=== PATIENT | female | born 1970 | race African-American/Black ===

== ENCOUNTER 2017-02-05 15:06 | Emergency (ER) | payer SELFPAY ==
[~2017-02-05] VITALS: Ht 160 cm; Wt 73.0 kg
[2017-02-05 15:26] VITALS: BP 169/114
[2017-02-06] MEDS ORDERED: HYDR12.54 PO (15:07)
== END 2017-02-05 21:00 | disposition left against medical advice (07) ==
LOC: ER 15:26
DX: Z53.21 Procedure and treatment not carried out due to patient leaving prior to being seen by health care provider (principal)

== ENCOUNTER 2017-02-06 14:53 | Emergency (ER) | payer SELFPAY ==
[~2017-02-06] VITALS: Ht 160 cm; Wt 74.0 kg
[2017-02-06] MEDS ORDERED: HYDR12.54 PO (15:07)
[2017-02-06 15:22] VITALS: BP 154/90
== END 2017-02-06 16:28 | disposition home or self-care (01) ==
LOC: ER 16:19
DX: M54.5 Low back pain (principal); M54.2 Cervicalgia; I10 Essential (primary) hypertension; Z88.8 Allergy status to other drugs, medicaments and biological substances; Z98.890 Other specified postprocedural states; V43.52XA Car driver injured in collision with other type car in traffic accident, initial encounter; Y93.89 Activity, other specified; Y92.488 Other paved roadways as the place of occurrence of the external cause
CPT/HCPCS: 99282

== ENCOUNTER 2022-02-24 22:37 | Inpatient (IN) | payer MEDICAID ==
[~2022-02-24] VITALS: Ht 160 cm; Wt 88.0 kg
[~2022-02-24 22:37] MED LIST: AMLO5TAB88 MT; ASPI-1497 PO; ATOR-2 PO; ISOS60TA76 PO; METO-385 PO; METO100T16 PO
[2022-02-24] MEDS ORDERED: NICARDIPINE 100 MG in SODIUM CHLORIDE 0.9% 60 ML IV ONE (23:00)
[2022-02-24 23:14] LABS: BASOPHILS % 0.8 % (0.0-2.0); EOSINOPHILS % 2.5 % (0.0-5.0); HEMATOCRIT. 39.2 % (36.0-48.0); HEMOGLOBIN. 12.5 g/dL (12.0-16.0); LYMPHOCYTES % 18.4 % (20.0-50.0); MEAN CORPUSCULAR HEMOGLOBIN 24.7 pg (28.0-32.0); MEAN CORPUSCULAR VOLUME 77.5 fL (81.0-99.0); MEAN PLATELET VOLUME 8.3 fl (7.4-10.4); MONOCYTES % 7.8 % (2.0-8.0); NEUTROPHILS % 70.5 % (40.0-76.0); PLATELET 285 x1000/uL (130-400); RED BLOOD CELL COUNT 5.05 mill/uL (4.2-5.4)
[2022-02-24 23:20] LABS: CHLORIDE 114 mEq/L (98-107)
[2022-02-24] MEDS: NICARDIPINE 100 MG in SODIUM CHLORIDE 0.9% 60 ML IV PRN (23:35)
[2022-02-25] VITALS (72 sets, daily range): BP systolic 105–144; BP diastolic 62–92
[2022-02-25] MEDS ORDERED: ONDANSETRON HCL 4MG/2ML INJ IV NR (00:15)
[2022-02-25] MEDS ORDERED: DEXAMETHASONE 10 MG/ML VIAL IV NR (00:15)
[2022-02-25] MEDS ORDERED: LEVETIRACETAM 1000MG PREMIX 100 ML IV NR (00:15)
[2022-02-25] MEDS ORDERED: MORPHINE SULFATE 4 MG/ML CPJ (NOT FOR IM USE) IV ONE (01:15)
[2022-02-25] MEDS ORDERED: MORPHINE SULFATE 2 MG/ML CPJ (NOT FOR IM USE) IV PRN (05:00)
[2022-02-25] MEDS ORDERED: DEXT 5%/LACTATED RINGERS 1,000 ML IV SCH (05:00)
[2022-02-25] MEDS ORDERED: NALOXONE HCL 0.4MG/ML VIAL IV PRN (05:15)
[2022-02-25] MEDS: DEXAMETHASONE 4MG/ML 1ML VIAL IV SCH ×4 (05:44→23:14)
[2022-02-25] MEDS: NICARDIPINE 100 MG in SODIUM CHLORIDE 0.9% 60 ML IV PRN ×3 (05:54→22:34)
[2022-02-25] MEDS: LEVETIRACETAM 500MG PREMIX 100 ML IV SCH ×2 (08:59→20:35)
[2022-02-25 11:00] LABS: CLARITY URINE CLEAR (CLEAR); COLOR URINE YELLOW (YELLOW); KETONES URINE NEGATIVE (NEGATIVE); LEUKOCYTE ESTERASE URINE NEGATIVE (NEGATIVE); NITRITE URINE NEGATIVE (NEGATIVE); OCCULT BLOOD URINE 2+ (NEGATIVE); PH URINE 5.5 (4.5-8.0); PROTEIN URINE 4+ (NEGATIVE); SPECIFIC GRAVITY URINE 1.018 (1.005-1.030); UROBILINOGEN URINE 0.2 E.U./dL (0.2-1.0)
[2022-02-25 11:23] LABS: HEMOGLOBIN. 12.4 g/dL (12.0-16.0); MEAN CORPUSCULAR HEMOGLOBIN 24.9 pg (28.0-32.0); MEAN CORPUSCULAR VOLUME 78.2 fL (81.0-99.0); MEAN PLATELET VOLUME 8.5 fl (7.4-10.4); PLATELET 302 x1000/uL (130-400); RED BLOOD CELL COUNT 4.99 mill/uL (4.2-5.4); RED CELL DISTRIBUTION WIDTH 17.3 % (11.6-14.6)
[2022-02-25 11:34] LABS: PARTIAL THROMBOPLASTIN TIME 30.5 sec (23.4-31.0); PROTHROMBIN TIME 10.7 sec (9.6-11.0)
[2022-02-25 11:46] LABS: *AMPHETAMINES SCREEN URINE NEGATIVE (NEGATIVE); *BARBITURATES SCREEN URINE NEGATIVE (NEGATIVE); *BENZODIAZEPINES SCREEN URINE NEGATIVE (NEGATIVE); *COCAINE SCREEN URINE NEGATIVE (NEGATIVE); CANNABINOID URINE SCREEN NEGATIVE (NEGATIVE); METHADONE URINE SCREEN NEGATIVE (NEGATIVE); OPIATES URINE SCREEN PRESUMTIVE POSITIVE (NEGATIVE); PHENCYCLIDINE URINE SCREEN NEGATIVE (NEGATIVE)
[2022-02-25] MEDS ORDERED: DEXT 5%/0.9% NACL 1,000 ML IV SCH (12:30)
[2022-02-25 12:33] LABS: PLATELET ESTIMATE NORMAL
[2022-02-26] VITALS (88 sets, daily range): BP systolic 98–150; BP diastolic 61–105
[2022-02-26 05:07] LABS: HEMATOCRIT. 39.7 % (36.0-48.0); HEMOGLOBIN. 12.2 g/dL (12.0-16.0); MEAN CORPUSCULAR HEMOGLOBIN 24.3 pg (28.0-32.0); MEAN CORPUSCULAR VOLUME 78.9 fL (81.0-99.0); MEAN PLATELET VOLUME 8.3 fl (7.4-10.4); PLATELET 314 x1000/uL (130-400); RED BLOOD CELL COUNT 5.03 mill/uL (4.2-5.4)
[2022-02-26] MEDS: DEXAMETHASONE 4MG/ML 1ML VIAL IV SCH ×4 (05:15→23:56)
[2022-02-26 05:24] LABS: PHOSPHORUS 5.5 mg/dL (2.5-4.9)
[2022-02-26 07:18] LABS: PLATELET ESTIMATE NORMAL
[2022-02-26] MEDS: LEVETIRACETAM 500MG PREMIX 100 ML IV SCH ×2 (08:58→20:16)
[2022-02-26] MEDS ORDERED: AMLODIPINE 5MG TABLET PO NR (09:15)
[2022-02-26 10:24] LABS: HEPATITIS B SURFACE AB < 3.1 mIU/mL
[2022-02-26] MEDS: MORPHINE SULFATE 2 MG/ML CPJ (NOT FOR IM USE) IV PRN ×2 (10:29→18:51)
[2022-02-26] MEDS ORDERED: ACETAMINOPHEN 325MG TABLET PO PRN (10:30)
[2022-02-26 10:34] LABS: HEPATITIS B SURFACE ANTIGEN NEGATIVE
[2022-02-26] MEDS: CLONIDINE 0.1MG TABLET PO PRN (18:51)
[2022-02-26] MEDS: METOPROLOL TARTRATE 25MG TABLET PO SCH (20:14)
[2022-02-26] MEDS: AMLODIPINE 5MG TABLET PO SCH (20:15)
[2022-02-27 03:57] VITALS: BP 130/80
[2022-02-27] MEDS: DEXAMETHASONE 4MG/ML 1ML VIAL IV SCH (05:30)
[2022-02-27 07:37] LABS: HEMATOCRIT. 35.3 % (36.0-48.0); HEMOGLOBIN. 11.3 g/dL (12.0-16.0); MEAN CORPUSCULAR VOLUME 78.2 fL (81.0-99.0); MEAN PLATELET VOLUME 8.5 fl (7.4-10.4); PLATELET 282 x1000/uL (130-400); RED BLOOD CELL COUNT 4.52 mill/uL (4.2-5.4); RED CELL DISTRIBUTION WIDTH 17.2 % (11.6-14.6)
[2022-02-27 08:00] VITALS: BP 131/78
[2022-02-27 08:02] LABS: PHOSPHORUS 5.1 mg/dL (2.5-4.9)
[2022-02-27] MEDS: AMLODIPINE 5MG TABLET PO SCH ×2 (09:00→17:16)
[2022-02-27] MEDS: METOPROLOL TARTRATE 25MG TABLET PO SCH ×2 (09:00→17:16)
[2022-02-27] MEDS: LEVETIRACETAM 500MG PREMIX 100 ML IV SCH ×2 (10:11→20:21)
[2022-02-27 12:00] VITALS: BP 129/75
[2022-02-27 16:00] VITALS: BP 138/89
[2022-02-27 17:28] LABS: PLATELET ESTIMATE NORMAL
[2022-02-27] MEDS ORDERED: DIPHENHYDRAMINE 50MG CAPSULE PO PRN (19:45)
[2022-02-27 20:00] VITALS: BP 139/84
[2022-02-27 23:52] VITALS: BP 141/88
[2022-02-28 03:33] VITALS: BP 145/87
[2022-02-28 08:00] VITALS: BP 142/84
[2022-02-28] MEDS: LEVETIRACETAM 500MG PREMIX 100 ML IV SCH ×2 (08:18→20:46)
[2022-02-28 10:04] LABS: HEMATOCRIT. 35.9 % (36.0-48.0); HEMOGLOBIN. 11.3 g/dL (12.0-16.0); MEAN CORPUSCULAR HEMOGLOBIN 24.8 pg (28.0-32.0); MEAN CORPUSCULAR VOLUME 78.9 fL (81.0-99.0); MEAN PLATELET VOLUME 8.8 fl (7.4-10.4); PLATELET 249 x1000/uL (130-400); RED BLOOD CELL COUNT 4.55 mill/uL (4.2-5.4)
[2022-02-28] MEDS: AMLODIPINE 5MG TABLET PO SCH ×2 (10:40→20:46)
[2022-02-28] MEDS: METOPROLOL TARTRATE 25MG TABLET PO SCH ×2 (10:41→20:45)
[2022-02-28 10:50] LABS: PHOSPHORUS 4.8 mg/dL (2.5-4.9)
[2022-02-28 12:00] VITALS: BP 172/97
[2022-02-28 14:28] LABS: PLATELET ESTIMATE NORMAL
[2022-02-28] MEDS: CLONIDINE 0.1MG TABLET PO PRN (14:46)
[2022-02-28] MEDS ORDERED: HYDRALAZINE HCL 50MG TABLET PO ONE (15:00)
[2022-02-28] MEDS ORDERED: HYDRALAZINE HCL 25MG TABLET PO NR (15:00)
[2022-02-28 16:00] VITALS: BP 135/91
[2022-02-28 20:00] VITALS: BP 146/63
[2022-02-28] MEDS ORDERED: HYDRALAZINE HCL 25MG TABLET PO SCH (21:00)
[2022-02-28] MEDS ORDERED: HYDRALAZINE HCL 50MG TABLET PO SCH (21:00)
[2022-02-28 23:44] VITALS: BP 147/95
[2022-03-01] VITALS (15 sets, daily range): BP systolic 132–190; BP diastolic 84–106
[2022-03-01] MEDS: CLONIDINE 0.1MG TABLET PO PRN (05:24)
[2022-03-01 08:07] LABS: BASOPHILS % 0.1 % (0.0-2.0); EOSINOPHILS % 0.3 % (0.0-5.0); HEMATOCRIT. 34.8 % (36.0-48.0); LYMPHOCYTES % 11.7 % (20.0-50.0); MEAN CORPUSCULAR HEMOGLOBIN 24.8 pg (28.0-32.0); MEAN CORPUSCULAR VOLUME 78.3 fL (81.0-99.0); MEAN PLATELET VOLUME 8.5 fl (7.4-10.4); MONOCYTES % 10.5 % (2.0-8.0); NEUTROPHILS % 77.4 % (40.0-76.0); PLATELET 234 x1000/uL (130-400); RED BLOOD CELL COUNT 4.45 mill/uL (4.2-5.4); RED CELL DISTRIBUTION WIDTH 16.7 % (11.6-14.6)
[2022-03-01 08:21] LABS: PHOSPHORUS 5.8 mg/dL (2.5-4.9)
[2022-03-01] MEDS: METOPROLOL TARTRATE 25MG TABLET PO SCH (09:00)
[2022-03-01 09:06] LABS: ANTI-NUCLEAR ANTIBODIES DIRECT Negative (Negative)
[2022-03-01] MEDS: LEVETIRACETAM 500MG TABLET PO SCH ×2 (09:09→21:41)
[2022-03-01] MEDS: AMLODIPINE 5MG TABLET PO SCH ×2 (09:10→21:42)
[2022-03-01] MEDS ORDERED: CEFAZOLIN 1000MG PREMIX 50 ML IV NR (10:30)
[2022-03-01] MEDS ORDERED: FENTANYL CITRATE/PF 50MCG/ML 2ML VIAL ONE (10:32)
[2022-03-01] MEDS ORDERED: FENTANYL CITRATE/PF 50MCG/ML 2ML VIAL IV ONE (11:30)
[2022-03-01] MEDS ORDERED: HYDR100T26 PO (12:29)
[2022-03-01] MEDS ORDERED: METO100T16 PO (12:29)
[2022-03-01] MEDS ORDERED: AMLO5TAB88 MT ×2 (12:29)
[2022-03-01] MEDS ORDERED: HYDRALAZINE HCL 100MG TABLET PO SCH (12:30)
[2022-03-01] MEDS ORDERED: METOPROLOL TARTRATE 25MG TABLET PO SCH (21:00)
[2022-03-01] MEDS: HYDRALAZINE HCL 100MG TABLET PO SCH (21:41)
[2022-03-01] MEDS: METOPROLOL TARTRATE 100MG TABLET PO SCH (21:43)
[2022-03-02] VITALS: BP 140/79
[2022-03-02 04:00] VITALS: BP 156/92
[2022-03-02 07:24] LABS: BASOPHILS % 0.1 % (0.0-2.0); EOSINOPHILS % 1.5 % (0.0-5.0); HEMATOCRIT. 37.5 % (36.0-48.0); HEMOGLOBIN. 11.9 g/dL (12.0-16.0); LYMPHOCYTES % 11.3 % (20.0-50.0); MEAN CORPUSCULAR VOLUME 79.2 fL (81.0-99.0); MEAN PLATELET VOLUME 8.6 fl (7.4-10.4); MONOCYTES % 10.8 % (2.0-8.0); NEUTROPHILS % 76.3 % (40.0-76.0); PLATELET 225 x1000/uL (130-400); RED BLOOD CELL COUNT 4.74 mill/uL (4.2-5.4); RED CELL DISTRIBUTION WIDTH 16.6 % (11.6-14.6)
[2022-03-02] MEDS: AMLODIPINE 5MG TABLET PO SCH (07:58)
[2022-03-02] MEDS: HYDRALAZINE HCL 100MG TABLET PO SCH ×2 (07:59→18:17)
[2022-03-02 08:00] VITALS: BP 169/90
[2022-03-02] MEDS: LEVETIRACETAM 500MG TABLET PO SCH ×2 (08:00→21:49)
[2022-03-02] MEDS: METOPROLOL TARTRATE 100MG TABLET PO SCH ×2 (08:06→21:49)
[2022-03-02] MEDS ORDERED: LOSARTAN POTASSIUM 50 MG TABLET PO SCH (11:30)
[2022-03-02] MEDS: CLONIDINE 0.1MG TABLET PO SCH ×2 (11:39→21:49)
[2022-03-02 12:00] VITALS: BP 112/78
[2022-03-02 16:00] VITALS: BP 156/87
[2022-03-02 20:00] VITALS: BP 138/83
[2022-03-03] VITALS: BP 143/87
[2022-03-03] MEDS: HYDRALAZINE HCL 100MG TABLET PO SCH ×3 (00:28→17:00)
[2022-03-03 03:26] VITALS: BP 121/76
[2022-03-03 07:09] LABS: EOSINOPHILS % 1.7 % (0.0-5.0); HEMATOCRIT. 38.4 % (36.0-48.0); HEMOGLOBIN. 11.9 g/dL (12.0-16.0); LYMPHOCYTES % 13.1 % (20.0-50.0); MEAN CORPUSCULAR HEMOGLOBIN 24.4 pg (28.0-32.0); MEAN CORPUSCULAR VOLUME 78.6 fL (81.0-99.0); MEAN PLATELET VOLUME 8.4 fl (7.4-10.4); MONOCYTES % 9.5 % (2.0-8.0); NEUTROPHILS % 75.7 % (40.0-76.0); PLATELET 229 x1000/uL (130-400); RED BLOOD CELL COUNT 4.88 mill/uL (4.2-5.4); RED CELL DISTRIBUTION WIDTH 16.9 % (11.6-14.6)
[2022-03-03 08:00] VITALS: BP 147/93
[2022-03-03] MEDS: LEVETIRACETAM 500MG TABLET PO SCH (08:48)
[2022-03-03] MEDS: CLONIDINE 0.1MG TABLET PO SCH ×2 (08:52→17:00)
[2022-03-03] MEDS: METOPROLOL TARTRATE 100MG TABLET PO SCH (08:54)
[2022-03-03] MEDS ORDERED: NIFEDIPINE XL 60MG TAB PO SCH (09:00)
[2022-03-03 12:00] VITALS: BP 108/74
[2022-03-03] MEDS ORDERED: NIFE-32 PO (12:49)
[2022-03-03] MEDS ORDERED: CLON0.1T PO (12:49)
[2022-03-03] MEDS ORDERED: LACTULOSE 20G/30ML UDC PO NR (13:30)
[2022-03-03 16:00] VITALS: BP 118/68
[2022-03-03 17:26] VITALS: BP 118/68
== END 2022-03-03 18:32 | disposition home or self-care (01) | DRG 44 ==
LOC: ER 22:37 → MICUSO 02-25 00:28 → ENRESERV 02-25 03:37 → 6WST 02-26 23:35
PROVIDERS: ADMIT Internal Medicine; ATTEND Internal Medicine
PROC: 02H633Z Insertion of Infusion Device into Right Atrium, Percutaneous Approach (ICD-10-PCS; principal; 2022-02-26)
PROC: B548ZZA Ultrasonography of Superior Vena Cava, Guidance (ICD-10-PCS; 2022-02-26)
PROC: 5A1D70Z Performance of Urinary Filtration, Intermittent, Less than 6 Hours Per Day (ICD-10-PCS; 2022-02-26)
PROC: 5A1D70Z Performance of Urinary Filtration, Intermittent, Less than 6 Hours Per Day (ICD-10-PCS; 2022-02-27)
PROC: 0JH63XZ Insertion of Tunneled Vascular Access Device into Chest Subcutaneous Tissue and Fascia, Percutaneous Approach (ICD-10-PCS; 2022-03-01)
PROC: 02HV33Z Insertion of Infusion Device into Superior Vena Cava, Percutaneous Approach (ICD-10-PCS; 2022-03-01)
PROC: B5181ZA Fluoroscopy of Superior Vena Cava using Low Osmolar Contrast, Guidance (ICD-10-PCS; 2022-03-01)
PROC: 5A1D70Z Performance of Urinary Filtration, Intermittent, Less than 6 Hours Per Day (ICD-10-PCS; 2022-03-01)
PROC: 5A1D70Z Performance of Urinary Filtration, Intermittent, Less than 6 Hours Per Day (ICD-10-PCS; 2022-03-03)
DX: I61.8 Other nontraumatic intracerebral hemorrhage (principal); G93.6 Cerebral edema; N17.9 Acute kidney failure, unspecified; E44.1 Mild protein-calorie malnutrition; E87.2 Acidosis; I27.20 Pulmonary hypertension, unspecified; I12.0 Hypertensive chronic kidney disease with stage 5 chronic kidney disease or end stage renal disease; E83.39 Other disorders of phosphorus metabolism; E83.41 Hypermagnesemia; N18.6 End stage renal disease; G81.94 Hemiplegia, unspecified affecting left nondominant side; D72.829 Elevated white blood cell count, unspecified; E87.8 Other disorders of electrolyte and fluid balance, not elsewhere classified; I16.1 Hypertensive emergency; E66.9 Obesity, unspecified; D25.9 Leiomyoma of uterus, unspecified; N27.1 Small kidney, bilateral; Q60.2 Renal agenesis, unspecified; Z82.49 Family history of ischemic heart disease and other diseases of the circulatory system; Z88.8 Allergy status to other drugs, medicaments and biological substances; Z20.822 Contact with and (suspected) exposure to COVID-19; Z68.34 Body mass index [BMI] 34.0-34.9, adult; Z83.3 Family history of diabetes mellitus; Z98.891 History of uterine scar from previous surgery
CPT/HCPCS: 36415; 36556; 36558; 36589; 71045; 76770; 76937; 77001; 80048; 80053; 80305; 81003; 82088; 83735; 83880; 84100; 84145; 84244; 84484; 85025; 86038; 86160; 86705; 86706; 86709; 86803; 87340; 87426; 92523; 93005; 93306; 97110; 97116; 97162; 97166; 97530; 97535; 99152; 99153; 99291; C1750; C1752; C1769; C1887; C9803; J0690; J1100; J1953; J2270; J2405; J3010; J3490; J7042; J7050; Q0163; U0003; U0005; G0500

== ENCOUNTER 2023-07-26 11:49 | Emergency (ER) | payer OTHER ==
[~2023-07-26] VITALS: Ht 167.6 cm; Wt 91.0 kg
[~2023-07-26 11:49] MED LIST changes: -AMLO5TAB88 MT; -ASPI-1497 PO; +CLON0.1T PO; +HYDR100T26 PO; -METO-385 PO; +NIFE-32 PO
[2023-07-26 11:55] VITALS: BP 158/97; PULSE 80; RESP 16; TEMP 98; O2SAT 97
[2023-07-26] MEDS ORDERED: BENZ1LOZ73 MT (16:33)
[2023-07-26] MEDS ORDERED: GUAI-450 MT (16:33)
[2023-07-26] MEDS ORDERED: DEXAMETHASONE 10 MG/ML VIAL PO ONE (16:45)
== END 2023-07-26 18:16 | disposition home or self-care (01) ==
LOC: ER 14:09
DX: B34.9 Viral infection, unspecified (principal); I10 Essential (primary) hypertension; Z88.5 Allergy status to narcotic agent; Z79.899 Other long term (current) drug therapy; Z98.890 Other specified postprocedural states
CPT/HCPCS: 99283; 71045; J1100